=== PATIENT | female | born 1965 | race Caucasian/White ===

== ENCOUNTER 2017-06-27 08:53 | Outpatient (CLI) | payer OTHER ==
--- NOTE | 2017-06-27 12:47 | CT ---
CT ABDOMEN WITHOUT IV CONTRAST: 06/27/2017 HISTORY: Hernia. The patient states abdominal pain and a painful sensation of something popping out of the a bdomen when she lifts something heavy. The patient has a history of a carcinoid tumor. FINDINGS: There is a small pericardial effusion. There is a less than 4 mm pulmonary nodule seen at the right lung base. The lung bases are otherwis e clear. Post surgical changes of the stomach are noted. Splenic and hepatic granulomata are present. There is a nonobstructing and approximately 2 to 3 mm calculus seen within the inferior pole left ki dney. No additional renal calculus is present. The appendix is visualized and is normal in caliber. Within the anterior aspect of the pelvis, anteriorly, there is an area of increased density, which i s in the region of prior post surgical change, which has a more mass-like configuration and measures 6 cm x 3 cm, which also extends laterally and anteriorly on the right. This may be related to a co mbination of mesh material, as well as a granulomatous type reaction and scarring. However, given t he mass-like appearance, continued followup is recommended. Just anterior to this region, there is a small amount of fluid within the subcutaneous soft tissues, in an infraumbilical location. There is colonic diverticulosis. The pancreas and bilateral adrenal glands demonstrate a grossly normal nonenhanced CT appearance. On the lateral view, there is a grade 1 anterolisthesis of L4 on L5 and probably trace anterolisthes is of L5 on S1 with degenerative changes at the lumbosacral junction. Vascular calcifications are seen in the abdominal aorta and iliac arteries. IMPRESSION: 1. Midline scarring is present within the abdomen, near the level of the umbilicus. There is a lob ulated area of increased density within the anterior most aspect junction of the anterior abdomen an d pelvis, as described above, which probably represents an area of scarring and granulomatous type r eaction; however, given the mass like appearance of this structure, continued followup is recommende d. Follow-up CT scan examination in four to six months is recommended, with IV contrast. 2. Small pericardial effusion. 3. Tiny, less than 4 mm pulmonary nodule, right lung base. 4. Post surgical changes in the region of the stomach. 5. There are no findings to suggest a hiatal hernia, and no abdominal wall hernia is visualized. 6. Small amount of fluid seen in a periumbilical region in the subcutaneous soft tissues. 7. Grade 1 anterolisthesis of L4 on L5 with suggestion of trace grade 1 anterolisthesis of L5 on S1 . 8. Colonic diverticulosis. POS: AI
== END 2017-06-27 08:54 | disposition home or self-care (01) ==
LOC: CT 08:53
PROVIDERS: ATTEND Family Medicine
DX: R10.9 Unspecified abdominal pain (principal); I31.3 Pericardial effusion (noninflammatory); K57.90 Diverticulosis of intestine, part unspecified, without perforation or abscess without bleeding; M43.16 Spondylolisthesis, lumbar region; L90.5 Scar conditions and fibrosis of skin; R91.1 Solitary pulmonary nodule; Z98.890 Other specified postprocedural states
CPT/HCPCS: 74150

== ENCOUNTER 2017-07-28 12:41 | Outpatient (CLI) | payer OTHER | END 2017-07-28 12:42 | disposition home or self-care (01) | LOC: MAMMO 12:41 | PROVIDERS: ATTEND Family Medicine | DX: Z12.31 Encounter for screening mammogram for malignant neoplasm of breast (principal); Z53.8 Procedure and treatment not carried out for other reasons ==

== ENCOUNTER 2017-09-07 08:00 | Outpatient (CLI) | payer OTHER | END 2017-09-07 08:01 | disposition home or self-care (01) | LOC: BICMAMMO 08:00 | PROVIDERS: ATTEND Family Medicine | DX: N63.20 Unspecified lump in the left breast, unspecified quadrant (principal); N63.10 Unspecified lump in the right breast, unspecified quadrant; D24.2 Benign neoplasm of left breast; N60.01 Solitary cyst of right breast; Z85.89 Personal history of malignant neoplasm of other organs and systems | CPT/HCPCS: 77066; G0204; G0279 ==

== ENCOUNTER 2017-10-27 07:49 | Outpatient (CLI) | payer OTHER ==
--- NOTE | 2017-10-27 10:21 | CT ---
CT ABDOMEN AND PELVIS WITH IV CONTRAST: Date: 10/27/17 HISTORY: 52-year-old female with history of abdominal surgery in 2007. Exam requested to follow finding on CT scan of 06/27/17 in the lower anterior abdomen. FINDINGS: Comparison made with exam of 06/27/17. The 3-4 mm nodule in the right lower lobe is stable. A small pericardial effusion is again seen. No f ree air, free fluid, or lymphadenopathy is seen in the abdomen or pelvis. No calcified gallstones are noted. There are calcified granulomas in the spleen. The liver, pancreas, adrenal glands, and kidney s are normal. The previously noted area of increased density in the region of prior postsurgical change within the anterior aspect of the lower abdomen/upper pelvis measuring 6.0 x 3.0 x 3.0 cm is stable and is likel y related to a combination of mesh material with granulomatous type reaction and scarring. Just anter ior to this, a small amount of fluid in the subcutaneous soft tissues in an infraumbilical location i s stable. There are vascular calcifications without evidence of aneurysmal dilatation of the abdominal aorta. A normal appearing appendix is present. There is colonic diverticulosis. Postop changes in the stomach are also again noted. IMPRESSION: Stable findings since 06/27/17. A follow-up CT scan of the abdomen and pelvis is recommended in 6 mon ths. POS: AI
== END 2017-10-27 07:50 | disposition home or self-care (01) ==
LOC: CT 07:49
PROVIDERS: ATTEND Family Medicine
DX: R93.5 Abnormal findings on diagnostic imaging of other abdominal regions, including retroperitoneum (principal)
CPT/HCPCS: 74160; 74177

== ENCOUNTER 2018-04-26 08:54 | Outpatient (CLI) | payer OTHER ==
[2018-04-26] MEDS ORDERED: Iopamidol 370 76% 100 ML VIAL ONE (13:33)
== END 2018-04-26 08:55 | disposition home or self-care (01) ==
LOC: BICCT 08:54
PROVIDERS: ATTEND Family Medicine
DX: R10.9 Unspecified abdominal pain (principal); I70.90 Unspecified atherosclerosis; Z98.890 Other specified postprocedural states
CPT/HCPCS: 74177

== ENCOUNTER 2019-09-10 13:21 | Outpatient (CLI) | payer OTHER ==
--- NOTE | 2019-09-10 16:20 | MMO ---
Bilateral MAMMO Bilat Screen [facility]. CLINICAL HISTORY: Patient is 54 years old and is seen for screening. The patient has no family history of breast cancer. The patient has a history of other cancer at age 31. VIEWS: The views performed were: bilateral craniocaudal and bilateral mediolateral oblique. FILMS COMPARED: The present examination has been compared to a prior imaging study performed at [facility] on 09/07/2017. This study has been interpreted with the assistance of computer-aided detection. MAMMOGRAM FINDINGS: There are scattered fibroglandular densities. There are no suspicious masses, suspicious calcifications, or new areas of architectural distortion. IMPRESSION: THERE IS NO MAMMOGRAPHIC EVIDENCE OF MALIGNANCY. A ROUTINE FOLLOW-UP MAMMOGRAM IN 1 YEAR IS RECOMMENDED. ACR BI-RADS Category 1 - Negative MAMMOGRAPHY NOTE: 1. A negative mammogram report should not delay a biopsy if a dominant of clinically suspicious mass is present. 2. Approximately 10% to 15% of breast cancers are not detected by mammography. 3. Adenosis and dense breasts may obscure an underlying neoplasm. Reported by: ADELSO KUNZ MD Electonically Signed: [id number]
== END 2019-09-10 13:22 | disposition home or self-care (01) ==
LOC: BICMAMMO 13:21
PROVIDERS: ATTEND Family Medicine
DX: Z12.31 Encounter for screening mammogram for malignant neoplasm of breast (principal); Z85.89 Personal history of malignant neoplasm of other organs and systems
CPT/HCPCS: 77067